=== PATIENT | male | born 1935 | race Caucasian/White ===

== ENCOUNTER 2020-07-26 02:06 | Emergency (ER) | payer MEDICARE, SELFPAY ==
--- NOTE | 2020-07-26 02:07 | CTR_ITS ---
PROCEDURE INFORMATION: Exam: CT Cervical Spine Without Contrast Exam date and time: 07/26/2020 2:20 AM Age: 85 years old Clinical indication: Pain and injury or trauma; Fall; Initial encounter; Blunt trauma; Neck pain TECHNIQUE: Imaging protocol: Computed tomography images of the cervical spine without contrast. Radiation optimization: All CT scans at this facility use at least one of these dose optimization techniques: automated exposure control; mA and/or kV adjustment per patient size (includes targeted exams where dose is matched to clinical indication); or iterative reconstruction. COMPARISON: No relevant prior studies available. RADIATION DOSE METRICS: Total DLP (mGy-cm): 684.91 FINDINGS: Mild degenerative changes are observed in the cervical spine. No cervical spine fracture is visualized. Spinal alignment is normal CT/CT cervical spin wo con* [id number] IMPRESSION: No cervical spine fracture. Radiation Dose CTDIVOL = (mGy): DLP = 684.91 (mGy-cm)
--- NOTE | 2020-07-26 02:07 | CTR_ITS ---
PROCEDURE INFORMATION: Exam: CT Head Without Contrast Exam date and time: 07/26/2020 2:20 AM Age: 85 years old Clinical indication: Injury or trauma; Fall; Initial encounter; Blunt trauma (contusions or hematomas); Consciousness not specified TECHNIQUE: Imaging protocol: Computed tomography of the head without contrast. Radiation optimization: All CT scans at this facility use at least one of these dose optimization techniques: automated exposure control; mA and/or kV adjustment per patient size (includes targeted exams where dose is matched to clinical indication); or iterative reconstruction. COMPARISON: No relevant prior studies available. RADIATION DOSE METRICS: Total DLP (mGy-cm): 832.91 FINDINGS: Brain: Mild atrophy and mild white matter chronic microvascular changes are noted. No hemorrhage or CT evidence of acute infarction is seen. Ventricles: Normal. No ventriculomegaly. Bones/joints: Unremarkable. No acute fracture. Sinuses: Visualized sinuses are unremarkable. No fluid levels. Mastoid air cells: Visualized mastoid air cells are well aerated. Soft tissues: Unremarkable. CT/CT head wo con* [id number] IMPRESSION: No acute intracranial abnormality. Radiation Dose CTDIVOL = (mGy): DLP = 832.91 (mGy-cm)
[2020-07-26 02:08] VITALS: PULSE 86; RESP 16; O2SAT 90; BMI 24.7
--- NOTE | 2020-07-26 02:16 | CTR_ITS ---
PROCEDURE INFORMATION: Exam: CT Chest With Contrast Exam date and time: 07/26/2020 2:19 AM Age: 85 years old Clinical indication: Injury or trauma; Fall; Initial encounter; Rlq; Blunt trauma (contusions or hematomas); Injury details: CO pain RT side; Additional info: Trauma - fell down 15 stairs TECHNIQUE: Imaging protocol: Computed tomography of the chest with intravenous contrast. Radiation optimization: All CT scans at this facility use at least one of these dose optimization techniques: automated exposure control; mA and/or kV adjustment per patient size (includes targeted exams where dose is matched to clinical indication); or iterative reconstruction. Contrast material: VISI; Contrast volume: 95 ml; Contrast route: INTRAVENOUS (IV); COMPARISON: No relevant prior studies available. RADIATION DOSE METRICS: Total DLP (mGy-cm): 1128.34 FINDINGS: Lungs: Bibasilar round atelectasis is seen. Scarring is noted in both lungs. No consolidation. No masses. Pleural space: Calcified pleural plaques and tiny pleural effusions are present. Negative for pneumothorax. A a Heart: Unremarkable. No cardiomegaly. No pericardial effusion. Aorta: Calcifications are present. No aortic aneurysm. Lymph nodes: Shotty mediastinal lymph nodes are seen. No enlarged lymph nodes. Bones/joints: Fixation hardware is seen in the right upper humerus. Degenerative changes are noted in the thoracic spine. No acute fracture. Soft tissues: Unremarkable. IMPRESSION: 1. No acute findings. 2. Bilateral calcified pleural plaques and tiny pleural effusions are present. 3. Scarring and around atelectasis is seen in both lungs. PROCEDURE INFORMATION: Exam: CT Abdomen And Pelvis With Contrast Exam date and time: 07/26/2020 2:19 AM Age: 85 years old Clinical indication: Injury or trauma; Fall; Initial encounter; Rlq; Blunt trauma (contusions or hematomas); Injury details: CO pain RT side; Additional info: Trauma - fell down 15 stairs TECHNIQUE: Imaging protocol: Computed tomography of the abdomen and pelvis with intravenous contrast. Radiation optimization: All CT scans at this facility use at least one of these dose optimization techniques: automated exposure control; mA and/or kV adjustment per patient size (includes targeted exams where dose is matched to clinical indication); or iterative reconstruction. Contrast material: VISI; Contrast volume: 95 ml; Contrast route: INTRAVENOUS (IV); COMPARISON: No relevant prior studies available. RADIATION DOSE METRICS: Total DLP (mGy-cm): 1128.34 FINDINGS: Liver: Normal. No mass. Gallbladder and bile ducts: The gallbladder is surgically absent. No ductal dilation. Pancreas: Normal. No ductal dilation. Spleen: Normal. No splenomegaly. Adrenals: Normal. No mass. Kidneys and ureters: Normal. No hydronephrosis. Stomach and bowel: Unremarkable. No obstruction. Diverticulosis of the sigmoid colon is present without diverticulitis. Large amount of fecal residue is seen throughout the colon. Appendix: No evidence of appendicitis. Intraperitoneal space: Unremarkable. No free air. No significant fluid collection. Vasculature: Unremarkable. No abdominal aortic aneurysm. Lymph nodes: Unremarkable. No enlarged lymph nodes. Bladder: Unremarkable as visualized. Reproductive: The prostate is enlarged with calcifications and projecting into the bladder base. Bones/joints: Degenerative changes are present. Irregularity in the coccyx suggest an undisplaced fracture. Soft tissues: Unremarkable. CT/CT chest abd pel w con* IMPRESSION: 1. No acute findings. Questionable undisplaced fracture of the coccyx is seen. 2. The gallbladder is surgically absent. 3. Prostatomegaly is present. 4. Degenerative changes are seen in the lumbar spine. 5. Diverticulosis of the sigmoid colon is present without diverticulitis. 6. Constipation is noted. Radiation Dose CTDIVOL = (mGy): DLP = 1128.34~1128.34 (mGy-cm)
[2020-07-26 02:20] LABS: Basophils # 0.1 10^3/uL (0.0-0.1); Basophils % 0.7 %; Eosinophils # 0.3 10^3/uL (0.0-0.8); Eosinophils % 2.7 %; Hematocrit 43.1 % (42.0-52.0); Hemoglobin 14.3 g/dL (11.7-16.6); Lymphocytes # 2.3 10^3/uL (0.8-4.8); Lymphocytes % 23.8 %; Mean Corpuscular HGB Conc 33.2 g/dL (30.0-36.0); Mean Corpuscular Hemoglobin 31.8 pg (28.0-34.0); Mean Platelet Volume 9.4 fL (7.4-10.4); Monocytes # 1.4 10^3/uL (0.2-0.9); Monocytes % 14.2 %; Neutrophils # 5.56 10^3/uL (1.8-7.7); Neutrophils % 58.1 %; Nucleated Red Blood Cells % 0 %; Platelet Count 246 10^3/cmm (130-400); Red Blood Count 4.49 10^6/uL (4.1-5.3); Red Cell Distribution Width 12.9 % (12.1-15.1); White Blood Count 9.6 10^3/uL (4.0-10.0)
--- NOTE | 2020-07-26 02:20 | W.ED.FALL ---
HPI - Fall General: Chief Complaint: Fall Stated Complaint: FALL Time Seen by Provider: 07/26/20 02:15 History of Present Illness: HPI Narrative: Pleasant alert 85-year-old male presents to the emergency department by EMS. He reports staying at his daughter's home, recently discharged from the hospital in [place] for colitis. He reports try to open a door and the next thing he knew he was at the bottom of the stairs. EMS reports he approximately fell 15 steps. He does not remember falling. He reports trying to open the door to go to the bathroom and landed on at the bottom of the steps. The steps lead to the basement - no padding on the floor. He complains of right posterior hip pain, daughter reports he was confused, not able to determine what happened immediately after the fall, was confused . COPD with oxygen dependence. MD complaint: fall Onset (ago): minute(s) (30) Fall from: down stairs (#) (15) Fall witnessed: no Place fall occurred: home and other (daughter's home) Loss of consciousness: Unsure Prolonged down time: no Symptoms prior to fall: none Context: tripped/slipped Location of injury: head, back and other (left elbow) Location of injury - extremities: Left: elbow, Right: hand and Bilateral: knee Severity scale (1-10): 2 Associated symptoms-after fall: Reports confusion; Denies abdominal pain, chest pain, headache(s), lightheadedness or neck pain Review of Systems General: Reports: 10 or more systems reviewed and unremarkable except in HPI and below Const: Denies: fever(s), chills or diaphoresis Eyes: Denies: blurry vision or eye redness ENMT: Denies: throat pain, dental pain or disequilibrium Card: Reports: dyspnea on exertion (chronic); Denies: chest pain, palpitations, irregular heart rhythm or lightheadedness Resp: Reports: dyspnea (due to COPD, not increased after fall); Denies: productive cough, non-productive cough, wheezing or pain on inspiration GI: Denies: abdominal pain, nausea or vomiting : Denies: flank pain or dysuria Musc: Reports: joint stiffness (right hand - chronic) and limited range of motion (right hip); Denies: neck pain or back pain Skin/Breast: Reports: skin tenderness (scattered abrasions ); Denies: rash or pruritus Neuro: Reports: confusion; Denies: headache(s) or weakness in extremities Psych: Denies: anxiety or depression Mukund/Lymph: Denies: easy bruising Physical Exam Const: COMMON NORMALS: no acute distress, healthy appearing and alert GENERAL APPEARANCE: cooperative, anxious and frail appearing ORIENTATION/CONSCIOUSNESS: Yes awake, Yes oriented to person and Yes confused; not oriented to place and not oriented to time HENMT: COMMON NORMALS: normocephalic, Normal external nose present and moist oral mucous membranes HEAD & SCALP: normocephalic HEAD IMAGES: 1. superficial abrasion - no bleeding FACE & SINUS: normal facial exam and sinuses nontender NOSE: Normal external nose present MOUTH: Normal oral and palatal mucosa present Eye: COMMON NORMALS: Equal, round and reactive pupils present and EOMs intact bilaterally GENERAL EYE: appearance normal, both eyes and all related structures PERIORBITAL: periorbital findings normal PUPIL: Yes Equal, round and reactive pupils present, Yes pupil size - right Right pupil size (mm): 4 and Yes pupil size - left Left pupil size (mm): 4 Neck/C-Spine: COMMON NORMALS: full ROM and no lymphadenopathy GENERAL: Yes normal visual inspection and Yes trachea midline CERVICAL SPINE: Yes cervical ROM normal, No pain with cervical ROM, No Cervical spine tenderness and No Paracervical muscle tenderness Lymph: LYMPHATIC: no lymphadenopathy noted Chest: COMMONS NORMALS: normal inspection of the chest and normal palpation of entire chest wall OTHER: Not able to reproduce pain to palpation, negative subcu air Resp: COMMON NORMALS: normal respiratory effort and clear to auscultation bilaterally AUSCULTATION: clear to auscultation bilaterally, rhonchi throughout and diminished lung sounds bilateral in the lower lung johnson Cardio: COMMON NORMALS: regular rhythm, S1 normal heart sound present, S2 normal heart sound present and Peripheral pulses 2+ throughout RHYTHM: regular rhythm HEART SOUNDS: S1 normal heart sound present and S2 normal heart sound present PERIPHERAL PULSES: Peripheral pulses 2+ throughout GI: COMMON NORMALS: Normal to inspection, nondistended, normoactive bowel sounds present, Soft to palpation and non-tender INSPECTION: Yes normal to inspection PALPATION: Yes Soft to palpation OTHER: negative ecchymosis/abrasions : COMMON NORMALS: Yes no CVA tenderness BLADDER/KIDNEY EXAM: Yes no CVA tenderness Back/Pelvis: COMMON NORMALS: no CVA tenderness and thoracic and lumbar spine normal to inspection BACK IMAGE (MALE): 1. superficial abrasion 2. skin tear 3. skin tear 4. superficial abrasion Extremity: COMMON NORMALS: normal to inspection and capillary refill normal GENERAL: Yes normal exam except as noted RIGHT LOWER EXTREMITY: Yes hip joint Right hip: Yes inspection (normal), Yes palpation (pain posteriorly - illiac crest and lateral), Yes ROM (pain with flexion, RLE not shortened distally) and Yes neurovascular exam (intact) OTHER: full ROM to the BUE, LLE without tenderness, pronation and supination BUE intact w/o pain or deficit - no visible deformities EXTREMITY IMAGE (FRONT): 1. superficial abrasion - no bleeding 2. superficial abrasion - no bleeding Neuro: FRANCIS COMA SCALE: document GCS findings [place] coma scale eye opening: Spontaneous [place] coma scale verbal response: Confused [place] coma scale motor response: Obey commands Francis coma scale total score: 14 COMMON NORMALS: moves all extremities and no focal motor deficits SENSORIUM/ORIENTATION: Yes alert, Yes oriented to person, No oriented to place, No oriented to time and Yes Orientation impaired (date and time) SPEECH: speech normal GAIT: Yes Unable to assess gait MOTOR EXAM: 5/5 motor strength present throughout Psych: COMMON NORMALS: mental status grossly normal, Normal thought process present and cooperative ACTIVITY/MOTOR BEHAVIOR: Yes appropriate eye contact THOUGHT PROCESS: Normal thought process present Skin: COMMON NORMALS: no rashes or lesions noted and turgor normal GENERAL SKIN EXAM: no rashes or lesions noted and turgor normal Course ED course: 85-year-old male patient presents to the emergency department status post fall. He reports was trying to go to the bathroom, open the door to the basement sustaining a fall down 15 stairs leading to the basement. He is currently staying with his daughter. His daughter reports he was ambulatory at the scene but disoriented/confused. Here in the emergency department, CT scan of the head cervical spine chest abdomen pelvis, trauma protocol, negative for acute findings. He continues to be conversive in conversation, neurologically at baseline according to daughter, confusion resolved. Will return home care of his daughter. Advised to follow-up with his primary care physician. Advised to take it easy for the next couple of days as he will be sore. Vital Signs: Vital signs: Vital Signs Pulse Rate 86 07/26/20 02:08 Respiratory Rate 18 07/26/20 03:05 Pulse Oximetry 98 07/26/20 03:05 - Fall Lab Data: Labs: Lab Results 07/26/20 07/26/20 07/26/20 Range/Units 02:00 02:00 02:00 WBC 9.6 (4.0-10.0) 10^3/ uL RBC 4.49 (4.1-5.3) 10^6/u L Hgb 14.3 (11.7-16.6) g/dL Hct 43.1 (42.0-52.0) % MCV 96.0 H (80-94) fL MCH 31.8 (28.0-34.0) pg MCHC 33.2 (30.0-36.0) g/dL RDW 12.9 (12.1-15.1) % Plt Count 246 (130-400) 10^3/c mm MPV 9.4 (7.4-10.4) fL Neut % (Auto) 58.1 % Lymph % (Auto) 23.8 % Cochran % (Auto) 14.2 % Eos % (Auto) 2.7 % Baso % (Auto) 0.7 % Neut # (Auto) 5.56 (1.8-7.7) 10^3/u L Lymph # (Auto) 2.3 (0.8-4.8) 10^3/u L Cochran # (Auto) 1.4 H (0.2-0.9) 10^3/u L Eos # (Auto) 0.3 (0.0-0.8) 10^3/u L Baso # (Auto) 0.1 (0.0-0.1) 10^3/u L Nucleated RBC % (a uto) 0 % Nucleated RBCs # 0.0 /100WBC PT 14.00 (12.1-14.9) SECO NDS INR 1.05 (0.8-1.2) Sodium 132 L (136-145) mmol/L Potassium 4.6 (3.5-5.1) mmol/L Chloride 98 (98-107) mmol/L Carbon Dioxide 26 (22-29) mmol/L Anion Gap 12.6 (5-19) BUN 17 (8-23) mg/dL Creatinine 2.1 H (0.7-1.2) mg/dL GFR Calculation Not Reportable Glucose 122 H (65-115) mg/dL Calculated Osmolal ity 272 L (285-295) mOsm/k g Calcium 9.1 (8.5-10.5) mg/dL Imaging Data^: Other CT: Radiologist's impression: [facility] [address] [facility] [place] [address] CT Scan Report Signed Patient: Lele Presley Unit #: [id number] : 1935 Age/Sex: 85 / M ADM Date: 07/26/20 Loc: ER Room/Bed: Attending Dr: Ordering Provider/Ordering MD: Venu Martin MD Date of Service: 07/26/20 Procedure(s): CT cervical spin wo con* [id number] Accession Number(s): [id number] Report Number: [id number] PROCEDURE INFORMATION: Exam: CT Cervical Spine Without Contrast Exam date and time: 07/26/2020 2:20 AM Age: 85 years old Clinical indication: Pain and injury or trauma; Fall; Initial encounter; Blunt trauma; Neck pain TECHNIQUE: Imaging protocol: Computed tomography images of the cervical spine without contrast. Radiation optimization: All CT scans at this facility use at least one of these dose optimization techniques: automated exposure control; mA and/or kV adjustment per patient size (includes targeted exams where dose is matched to clinical indication); or iterative reconstruction. COMPARISON: No relevant prior studies available. RADIATION DOSE METRICS: Total DLP (mGy-cm): 684.91 FINDINGS: Mild degenerative changes are observed in the cervical spine. No cervical spine fracture is visualized. Spinal alignment is normal CT/CT cervical spin wo con* [id number] IMPRESSION: No cervical spine fracture. Radiation Dose CTDIVOL = (mGy): DLP = 684.91 (mGy-cm) Dictated By: William Trammell MD Signed By: William Trammell MD Signed Date/Time: 07/26/[address] Head: Radiologist's impression: [facility] [address] [facility] [place] [address] CT Scan Report Signed Patient: Lele Presley Unit #: [id number] : 1935 Age/Sex: 85 / M ADM Date: 07/26/20 Loc: ER Room/Bed: Attending Dr: Ordering Provider/Ordering MD: Venu Martin MD Date of Service: 07/26/20 Procedure(s): CT head wo con* [id number] Accession Number(s): [id number] Report Number: [id number] PROCEDURE INFORMATION: Exam: CT Head Without Contrast Exam date and time: 07/26/2020 2:20 AM Age: 85 years old Clinical indication: Injury or trauma; Fall; Initial encounter; Blunt trauma (contusions or hematomas); Consciousness not specified TECHNIQUE: Imaging protocol: Computed tomography of the head without contrast. Radiation optimization: All CT scans at this facility use at least one of these dose optimization techniques: automated exposure control; mA and/or kV adjustment per patient size (includes targeted exams where dose is matched to clinical indication); or iterative reconstruction. COMPARISON: No relevant prior studies available. RADIATION DOSE METRICS: Total DLP (mGy-cm): 832.91 FINDINGS: Brain: Mild atrophy and mild white matter chronic microvascular changes are noted. No hemorrhage or CT evidence of acute infarction is seen. Ventricles: Normal. No ventriculomegaly. Bones/joints: Unremarkable. No acute fracture. Sinuses: Visualized sinuses are unremarkable. No fluid levels. Mastoid air cells: Visualized mastoid air cells are well aerated. Soft tissues: Unremarkable. CT/CT head wo con* [id number] IMPRESSION: No acute intracranial abnormality. Radiation Dose CTDIVOL = (mGy): DLP = 832.91 (mGy-cm) Dictated By: William Trammell MD Signed By: William Trammell MD Signed Date/Time: 07/26/[address] Abd/Pel: Radiologist's impression: [address] [address] [address] Scan Report Signed Patient: Lele Presley Unit #: [id number] : 1935 Age/Sex: 85 / M ADM Date: 07/26/20 Loc: ER Room/Bed: Attending Dr: Ordering Provider/Ordering MD: Shalini Holcomb Date of Service: 07/26/20 Procedure(s): CT chest abd pel w con* Accession Number(s): [id number] Report Number: [id number] PROCEDURE INFORMATION: Exam: CT Chest With Contrast Exam date and time: 07/26/2020 2:19 AM Age: 85 years old Clinical indication: Injury or trauma; Fall; Initial encounter; Rlq; Blunt trauma (contusions or hematomas); Injury details: CO pain RT side; Additional info: Trauma - fell down 15 stairs TECHNIQUE: Imaging protocol: Computed tomography of the chest with intravenous contrast. Radiation optimization: All CT scans at this facility use at least one of these dose optimization techniques: automated exposure control; mA and/or kV adjustment per patient size (includes targeted exams where dose is matched to clinical indication); or iterative reconstruction. Contrast material: VISI; Contrast volume: 95 ml; Contrast route: INTRAVENOUS (IV); COMPARISON: No relevant prior studies available. RADIATION DOSE METRICS: Total DLP (mGy-cm): 1128.34 FINDINGS: Lungs: Bibasilar round atelectasis is seen. Scarring is noted in both lungs. No consolidation. No masses. Pleural space: Calcified pleural plaques and tiny pleural effusions are present. Negative for pneumothorax. A a Heart: Unremarkable. No cardiomegaly. No pericardial effusion. Aorta: Calcifications are present. No aortic aneurysm. Lymph nodes: Shotty mediastinal lymph nodes are seen. No enlarged lymph nodes. Bones/joints: Fixation hardware is seen in the right upper humerus. Degenerative changes are noted in the thoracic spine. No acute fracture. Soft tissues: Unremarkable. IMPRESSION: 1. No acute findings. 2. Bilateral calcified pleural plaques and tiny pleural effusions are present. 3. Scarring and around atelectasis is seen in both lungs. PROCEDURE INFORMATION: Exam: CT Abdomen And Pelvis With Contrast Exam date and time: 07/26/2020 2:19 AM Age: 85 years old Clinical indication: Injury or trauma; Fall; Initial encounter; Rlq; Blunt trauma (contusions or hematomas); Injury details: CO pain RT side; Additional info: Trauma - fell down 15 stairs TECHNIQUE: Imaging protocol: Computed tomography of the abdomen and pelvis with intravenous contrast. Radiation optimization: All CT scans at this facility use at least one of these dose optimization techniques: automated exposure control; mA and/or kV adjustment per patient size (includes targeted exams where dose is matched to clinical indication); or iterative reconstruction. Contrast material: VISI; Contrast volume: 95 ml; Contrast route: INTRAVENOUS (IV); COMPARISON: No relevant prior studies available. RADIATION DOSE METRICS: Total DLP (mGy-cm): 1128.34 FINDINGS: Liver: Normal. No mass. Gallbladder and bile ducts: The gallbladder is surgically absent. No ductal dilation. Pancreas: Normal. No ductal dilation. Spleen: Normal. No splenomegaly. Adrenals: Normal. No mass. Kidneys and ureters: Normal. No hydronephrosis. Stomach and bowel: Unremarkable. No obstruction. Diverticulosis of the sigmoid colon is present without diverticulitis. Large amount of fecal residue is seen throughout the colon. Appendix: No evidence of appendicitis. Intraperitoneal space: Unremarkable. No free air. No significant fluid collection. Vasculature: Unremarkable. No abdominal aortic aneurysm. Lymph nodes: Unremarkable. No enlarged lymph nodes. Bladder: Unremarkable as visualized. Reproductive: The prostate is enlarged with calcifications and projecting into the bladder base. Bones/joints: Degenerative changes are present. Irregularity in the coccyx suggest an undisplaced fracture. Soft tissues: Unremarkable. CT/CT chest abd pel w con* IMPRESSION: 1. No acute findings. Questionable undisplaced fracture of the coccyx is seen. 2. The gallbladder is surgically absent. 3. Prostatomegaly is present. 4. Degenerative changes are seen in the lumbar spine. 5. Diverticulosis of the sigmoid colon is present without diverticulitis. 6. Constipation is noted. Radiation Dose CTDIVOL = (mGy): DLP = 1128.34 1128.34 (mGy-cm) Dictated By: Rick Barrett Discharge Plan Discharge Patient Disposition: Home Clinical Impression: Fall (on) (from) other stairs and steps, initial encounter, Abrasion Skin tear of elbow without complication Qualifiers: Encounter type: initial encounter Laterality: right Qualified Code(s): S51.011A - Laceration without foreign body of right elbow, initial encounter Contusion of head Qualifiers: Encounter type: initial encounter Contusion of head detail: scalp Qualified Code(s): S00.03XA - Contusion of scalp, initial encounter Fracture closed, ilium Qualifiers: Encounter type: initial encounter Fracture morphology: avulsion Fracture alignment: nondisplaced Laterality: right Qualified Code(s): S32.314A - Nondisplaced avulsion fracture of right ilium, initial encounter for closed fracture Condition: Stable Discharge Orders: Discharge Order (Routine); Ordered 07/26/20 Ordered By: Shalini Holcomb Discharge Diet: Usual diet Discharge Activity: Limit activity as instructed Patient Instructions: Concussion/Head Injury - Adult, Diphtheria/Acellular Pertussis/Tetanus Booster Vaccine (Tdap) (Injection), Abrasion (ED), Skin Tear (ED), Fall Prevention (ED) Activity Restrictions/Additional Instructions: Take it easy over the next couple of days, rest at home May apply cool compresses alternate with warm moist heat to sore tender areas. Follow-up with your doctor this week Monitor for falls If you develop worsening pain, nausea vomiting, disorientation or increased confusion, please return to the emergency room immediately Take hydrocodone as needed for pain, may supplement with Tylenol, not to exceed 2000 mg daily Coding Level of Care Code ED Director Targeted Marketing for Chg Fwd Exam Comprehensive
[2020-07-26 02:42] LABS: INR 1.05 (0.8-1.2)
[2020-07-26 02:50] LABS: Anion Gap 12.6 (5-19); Blood Urea Nitrogen 17 mg/dL (8-23); Calcium 9.1 mg/dL (8.5-10.5); Carbon Dioxide 26 mmol/L (22-29); Chloride 98 mmol/L (98-107); Glucose 122 mg/dL (65-115); Osmolality Calculated 272 mOsm/kg (285-295); Potassium 4.6 mmol/L (3.5-5.1); Sodium 132 mmol/L (136-145)
[2020-07-26] MEDS: tetanus-dipt-pertussis 0.5 mL SDV IM (03:02)
[2020-07-26 03:05] VITALS: RESP 18; O2SAT 98
[2020-07-26] MEDS: morphine 4 mg/mL SDV 1 mL 2 MG IVP (03:05)
[2020-07-26] MEDS: sodium chloride 0.9% 500 ML IV (03:05)
[2020-07-26] MEDS: HYDROcodone-acetaminophen 5-325 mg Tablet 1 TAB PO (03:58)
[2020-07-26 04:05] VITALS: BP 157/83; PULSE 88; RESP 18; TEMP 36.9; O2SAT 94
== END 2020-07-26 04:08 | disposition home or self-care (01) ==
PROVIDERS: Emergency Medicine; Emergency Provider Nurse Practitioner Family
DX: S32.314A Nondisplaced avulsion fracture of right ilium, initial encounter for closed fracture (principal); S00.03XA Contusion of scalp, initial encounter; S51.011A Laceration without foreign body of right elbow, initial encounter; W10.8XXA Fall (on) (from) other stairs and steps, initial encounter; Z23 Encounter for immunization
CPT/HCPCS: 12345; 70450; 71260; 72125; 74177; 80048; 85025; 85610; 90471; 90715; 96361; 96374; 96375; 99282; 99284; J2270; J7040; Q9967